=== PATIENT | female | born 1945 | race Caucasian/White ===

== ENCOUNTER 2022-12-24 10:06 | Day surgery (SDC) | payer MEDICARE ==
[~2022-12-24] VITALS: Ht 160 cm; Wt 65.8 kg
[~2022-12-24 10:06] MED LIST: AMOXICILLIN 8751 TAB PO; EVISTA 60MG60 MG/TAB PO; LIPITOR 10MG10 MG PO
[2022-12-24 11:26] VITALS: BP 121/72; PULSE 71; TEMP 98.1
[2022-12-24] MEDS ORDERED: OMEGA-3 1000 MG1 CAP PO (11:36)
[2022-12-24] MEDS ORDERED: MULTI VITAMINS1 TAB PO (11:36)
[2022-12-24] MEDS ORDERED: ASPIRIN 81M81 MG/TA2 PO (11:37)
[2022-12-24] MEDS ORDERED: MOVE FREE PLUS1 EACH PO (11:38)
[2022-12-24 12:10] VITALS: BP 123/70; PULSE 74; TEMP 97.6
[2022-12-24 12:25] VITALS: BP 132/71; PULSE 70
[2022-12-24 12:40] VITALS: BP 122/76; PULSE 68
--- NOTE | 2022-12-24 13:30 | NUR ---
1210: PATIENT TO BAY 7 PER CART FROM ENDO SUITE. VS STABLE. BREATHING EVEN AND UNLABORED. PATIENT GIVEN APPLESAUCE AND DIET SODA. PATIENT HAS NO CONCERNS AT THIS TIME. RESTING IN RECLINER. CALL LIGHT IN REACH. 1225: DR. PRICE IN TO SPEAK WITH PATIENT. DR. PRICE GAVE INSTRUCTIONS ON INFILTRATED IV SITE. VS REMAINS STABLE. PATIENT TOLERATING FOOD AND DRINK. NO CONCERNS NOTED AT THIS TIME. CALL LIGHT IN REACH 1240: VS REMAIN STABLE. DISCHARGE EDUCATION COMPLETED. PATIENT STATED UNDERSTANDING OF INSTRUCTIONS. DISCHARGE PAPERWORK GIVEN TO PATIENT. IV DC'D AT THIS TIME. PATIENT DENIES ASSISTANCE WITH DRESSING. 1310: PATIENT OFF UNIT VIA WHEELCHAIR. PATIENT DISCHARGED TO HOME WITH VIA PERSONAL VEHICLE.
== END 2022-12-24 13:10 | disposition home or self-care (01) ==
LOC: SDCO 10:06
DX: Z12.11 Encounter for screening for malignant neoplasm of colon (principal); D12.2 Benign neoplasm of ascending colon; K29.51 Unspecified chronic gastritis with bleeding; K44.9 Diaphragmatic hernia without obstruction or gangrene; R93.3 Abnormal findings on diagnostic imaging of other parts of digestive tract; K62.89 Other specified diseases of anus and rectum; K57.30 Diverticulosis of large intestine without perforation or abscess without bleeding; Z87.891 Personal history of nicotine dependence; Z28.310 Unvaccinated for COVID-19
CPT/HCPCS: J2704; J7120